=== PATIENT | female | born 2000 | race Caucasian/White ===

== ENCOUNTER 2024-10-24 14:46 | Outpatient (AMB) | payer MEDICAID, SELFPAY ==
[2024-10-24 14:58] VITALS: BP 135/81; PULSE 77; RESP 18; TEMP 36.6; O2SAT 99; BMI 37.0
--- NOTE | 2024-10-24 14:58 | GYNCLNT_ITS ---
Vital Signs 10/24/24 14:58 Height 1.63 m Height Method Stated Weight 98.486 kg Weight Measurement Method Standing Scale BMI 37.0 BP 135/81 H Blood Pressure Source Automatic Cuff Blood Pressure Location Right Upper Arm Position Sitting Respiration 18 Pulse 77 Pulse Source Monitor Temp 97.8 F Temp Source Temporal Artery Scan Pulse Oximetry (%) 99 Oxygen Delivery Method Room Air Allergies/Home Meds Allergies & Medications Allergies NKA* Allergy (Uncoded 04/22/14 17:42) Intake Visit Data Collection New Patient or Established: Established Patient (seen at [facility] within 3 years) Reason for Visit:: annual woman exam Do You Feel Safe at Home: Yes Authorities Contacted: N/A PCP or OBGYN visit in last 3 months: Yes Last menstrual period: 10/20/24 Pain Present Currently: No Smoking Status Smoking Status: Never smoker 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 1. Little interest or pleasure in doing things: not at all 2. Feeling down, depressed, or hopeless: not at all Total score: 0 Depression screen completed yes Social History Living Situation History Marital Status: Single Lives With: Family Housing: House Tobacco History Smoking Status: Never smoker Alcohol History Alcohol Intake: Never Domestic Abuse History Do You Feel Safe at Home: Yes Past Medical History Past Medical History Have you ever been diagnosed with any of the following: Cardiology Problems Congestive Heart Failure: No Respiratory Problems Chronic Obstructive Pulmonary Disease (COPD): No Genital/Urinary Problems Renal Disease: No Endocrine Problems Diabetes Mellitus Type 1: No Diabetes Mellitus Type 2: No History of Present Illness HPI Narrative 24-year-old 1 para 1 she is here every 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 Patient started her menses when she was 11. She reports that for the last 2 years her periods have become irregular. Reporting that sometimes she skips up to 2 months. She also complains of increased hair growth on her chin and increased weight gain. Patient also states that when she is compliant with avoiding carbs and eating more healthy and walking regularly she has regular cycles. Her last period October 20, 2024. She denies history of social habits. Denies history of chronic illness. Patient is obese. And denies surgeries. Condoms for contraception. Patient was not interested in changing to a more effective method. Review of Systems Review of Systems Systems Reviewed: All systems reviewed, normal except as documented Exam Narrative Physical exam: light hair growth on chin, euthyroid. both breast, soft, non tender, no masses. abdomen soft, non tender, no masses, perineum clear,no lesion. vagina pink, no abnormal discharge, parrous cervix. uterus normal size and shape. no adnexal mass General Limitations: no limitations General Appearance: alert, in no apparent distress, comfortable, cooperative, healthy appearing, well developed and well groomed Head Head exam: atraumatic, normocephalic and normal inspection Chest Chest inspection: Present normal inspection and symmetric chest wall rise Resp Respiratory exam: Present normal lung sounds bilaterally Card Cardiovascular exam: Present regular rate, normal rhythm and normal heart sounds Abdominal Abdominal exam: Present soft and normal bowel sounds External exam: Present normal external exam Speculum exam: Present normal speculum exam Bimanual exam: Present normal bimanual exam Psych Psychiatric exam: Present normal affect and normal mood Assessment & Plan Diagnosis / Problem List (1) Encounter for Routine Gynecological Examination: (2) Encounter for annual routine gynecological examination: Status: Acute (3) Encounter for screening for malignant neoplasm of cervix: Status: Acute (4) Abnormal menses: Status: Acute Plan PCOS labs ordered, pap today, discuss irregular menses with patient. continue multi vitamin with folic acid, walk 40 minute daily, discuss low carb diet and weight loss, discuss self breast exam monthly, review compliance with condom. menses calendar. 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
== END 2024-10-24 16:02 | disposition home or self-care (01) ==
LOC: HODSOBC 14:46
PROVIDERS: PCP Family Medicine; Referring Provider Family Medicine; Supervising Provider Advanced Practice Midwife; Visit Provider Advanced Practice Midwife
DX: Z01.419 Encounter for gynecological examination (general) (routine) without abnormal findings (principal); N92.6 Irregular menstruation, unspecified; E66.9 Obesity, unspecified; Z68.37 Body mass index [BMI] 37.0-37.9, adult
CPT/HCPCS: 99203; Q0091; G0463